=== PATIENT | female | born 1970 | race Caucasian/White ===

== ENCOUNTER 2017-06-27 19:12 | Emergency (ER) | payer BC, OTHER ==
[~2017-06-27] VITALS: Ht 147.3 cm; Wt 86.8 kg
[~2017-06-27 19:12] MED LIST: ANTIVERT 12.512.5 MG PO; FLEXERIL 1010 MG/TAB PO; NORCO 325 MG-51 TAB PO; PRINIVIL20 MG PO; TUSS PO; TYLENOL ARTHRI650 M1; ZITHROMAX Z PA250 MG PO
[2017-06-27 19:13] VITALS: BP 130/82; PULSE 89; TEMP 99
== END 2017-06-27 21:12 | disposition home or self-care (01) ==
LOC: COL.ER 19:12
DX: M76.62 Achilles tendinitis, left leg (principal); G43.909 Migraine, unspecified, not intractable, without status migrainosus

== ENCOUNTER 2018-02-25 10:03 | Emergency (ER) | payer BC, OTHER ==
[~2018-02-25] VITALS: Ht 147.3 cm; Wt 90.5 kg
[2018-02-25 10:12] VITALS: BP 120/90; PULSE 100; TEMP 98.2
[2018-02-25] MEDS ORDERED: ZANAFLEX2 MG PO (11:03)
[2018-02-25] MEDS ORDERED: AMITRIPTYLINE H25 M1 PO (11:03)
[2018-02-25] MEDS ORDERED: ULTRAM 50MG TAB50 MG PO (11:03)
[2018-02-25] MEDS ORDERED: TROKEND100 (11:04)
[2018-02-25] MEDS ORDERED: NEURONTIN300 MG/CAP PO (11:04)
[2018-02-25] MEDS ORDERED: TOPROL XL 25MG25 MG PO (11:04)
== END 2018-02-25 11:23 | disposition home or self-care (01) ==
LOC: COL.ER 10:03
DX: S92.515A Nondisplaced fracture of proximal phalanx of left lesser toe(s), initial encounter for closed fracture (principal); Z98.890 Other specified postprocedural states; Z87.891 Personal history of nicotine dependence; W22.8XXA Striking against or struck by other objects, initial encounter; Y92.009 Unspecified place in unspecified non-institutional (private) residence as the place of occurrence of the external cause

== ENCOUNTER 2018-06-22 12:11 | Emergency (ER) | payer BC, OTHER ==
[~2018-06-22] VITALS: Ht 147.3 cm; Wt 90.5 kg
[~2018-06-22 12:11] MED LIST changes: +AMITRIPTYLINE H25 M1 PO; +NEURONTIN300 MG/CAP PO; +TOPROL XL 25MG25 MG PO; +TROKEND100; +ULTRAM 50MG TAB50 MG PO; +ZANAFLEX2 MG PO
[2018-06-22 12:21] VITALS: BP 128/80; TEMP 98
[2018-06-22] MEDS ORDERED: SAVELLA100 MG PO (13:14)
[2018-06-22] MEDS ORDERED: PHARMASSURE MA500 MG PO (13:14)
[2018-06-22] MEDS ORDERED: VITAMIN D32000 I1 PO (13:15)
[2018-06-22] MEDS ORDERED: CLARITIN 1010 MG/TAB PO (13:15)
[2018-06-22] MEDS ORDERED: ATARAX 25MG25 MG/TAB PO (13:16)
[2018-06-22] MEDS ORDERED: NEURONTIN300 MG/CAP PO (13:17)
[2018-06-22 13:59] VITALS: PULSE 82
== END 2018-06-22 13:59 | disposition home or self-care (01) ==
LOC: COL.ER 12:11
DX: S76.011A Strain of muscle, fascia and tendon of right hip, initial encounter (principal); S80.12XA Contusion of left lower leg, initial encounter; W22.8XXA Striking against or struck by other objects, initial encounter; Y92.89 Other specified places as the place of occurrence of the external cause

== ENCOUNTER 2019-06-27 11:45 | Outpatient (CLI) | payer BC, OTHER ==
[~2019-06-27] VITALS: Ht 147.3 cm; Wt 89.5 kg
[~2019-06-27 11:45] MED LIST changes: +ATARAX 25MG25 MG/TAB PO; +CLARITIN 1010 MG/TAB PO; +PHARMASSURE MA500 MG PO; +SAVELLA100 MG PO; +VITAMIN D32000 I1 PO
[2019-06-27] MEDS ORDERED: ALEVE 220MG220 MG PO (12:41)
[2019-06-27] MEDS ORDERED: TYLENOL 325MG325 MG PO (12:43)
[2019-06-27] MEDS ORDERED: VITAMIN B12 681 TAB PO (12:44)
[2019-06-27] MEDS ORDERED: SKELAXIN 4400 MG/TAB PO (12:45)
[2019-06-27] MEDS ORDERED: LINZESS145CAP PO (12:46)
[2019-06-27] MEDS ORDERED: AIMOVIG AU70 MG/1 ML SQ (12:47)
[2019-06-27] MEDS ORDERED: SAXENDA6 MG/ML SQ (12:48)
[2019-06-27] MEDS ORDERED: ZOFRAN8 MG PO (12:49)
[2019-06-27] MEDS ORDERED: LIDODERM 5% PATC1 EA TP (12:50)
[2019-06-27] MEDS ORDERED: PHENERGAN 25 TA25 MG PO (12:50)
[2019-06-27] MEDS ORDERED: VALIUM 5MG T5 MG/TAB PO (12:51)
[2019-06-27 12:53] VITALS: BP 122/76; PULSE 91; TEMP 98.5
[2019-06-27 14:38] VITALS: BP 105/80; PULSE 109; TEMP 98.5
--- NOTE | 2019-06-27 14:38 | NUR ---
Back from TTT by shandra. VSS. Spouse bedside
[2019-06-27 14:52] VITALS: BP 99/65; PULSE 100; TEMP 98.5
[2019-06-27 15:07] VITALS: BP 91/53; PULSE 116; TEMP 98.5
--- NOTE | 2019-06-27 15:09 | NUR ---
Dr. Ivey in to see pt.
[2019-06-27 15:22] VITALS: BP 111/63; PULSE 94; TEMP 98.5
--- NOTE | 2019-06-27 15:30 | NUR ---
IV discontinued intact. Discharge instructions given. Transferred to private car by shandra
== END 2019-06-27 15:35 | disposition home or self-care (01) ==
LOC: COL.CAR 11:45
DX: R55 Syncope and collapse (principal); I10 Essential (primary) hypertension; M19.90 Unspecified osteoarthritis, unspecified site; G47.00 Insomnia, unspecified; G40.909 Epilepsy, unspecified, not intractable, without status epilepticus; Z91.040 Latex allergy status; Z88.8 Allergy status to other drugs, medicaments and biological substances; Z87.891 Personal history of nicotine dependence; Z80.9 Family history of malignant neoplasm, unspecified; Z83.79 Family history of other diseases of the digestive system; Z91.048 Other nonmedicinal substance allergy status

== ENCOUNTER 2019-08-06 09:49 | Inpatient (IN) | payer BC, OTHER ==
[~2019-08-06] VITALS: Ht 165.1 cm; Wt 90.2 kg
[~2019-08-06 09:49] MED LIST changes: +AIMOVIG AU70 MG/1 ML SQ; +ALEVE 220MG220 MG PO; +LIDODERM 5% PATC1 EA TP; +LINZESS145CAP PO; +PHENERGAN 25 TA25 MG PO; +SAXENDA6 MG/ML SQ; +SKELAXIN 4400 MG/TAB PO; +TYLENOL 325MG325 MG PO; +VALIUM 5MG T5 MG/TAB PO; +VITAMIN B12 681 TAB PO; +ZOFRAN8 MG PO
[2019-08-07 08:51] VITALS: BP 91/71; PULSE 82; TEMP 97.9
[2019-08-07] MEDS ORDERED: VITAMIN B11000 MCG/M IM (09:16)
[2019-08-07 09:36] LABS: BASO % 0.7 % (0.0-2.0); EOS # 0.1 (0.0-0.7); EOS % 1.4 % (0-4.0); GRAN # 2.4 (1.4-6.5); GRAN % 55.5 % (42.2-75.2); LYMPH # 1.4 (1.2-3.4); MEAN CELL VOLUME 89 fl (80.0-100.0); MEAN CORPUSCULAR HEMOGLOBIN 27 pg (27.0-31.0); MEAN CORPUSCULAR HGB CONC 30 g/dl (33.0-37.0); MEAN PLATELET VOLUME 9.4 fl (7.4-10.4); MONO # 0.4 (0.1-0.6); MONO % 9.9 % (1.7-9.3); PLATELET COUNT 367 K/mm3 (130-400); RED BLOOD COUNT 4.07 M/mm3 (4.10-5.30)
[2019-08-07 09:38] LABS: HEMATOCRIT 36.3 % (37.0-47.0)
[2019-08-07 09:39] LABS: PROTHROMBIN TIME 11.8 SECONDS (9.7-12.8)
[2019-08-07 09:46] LABS: ALBUMIN 4.1 gm/dL (3.5-5.0); BILIRUBIN,TOTAL 0.3 mg/dL (0.0-1.0); CALCIUM 9.2 mg/dL (8.4-10.2); CREATININE, serum 1.03 (0.52-1.25); MAGNESIUM 2.2 mg/dL (1.6-2.3); POTASSIUM 3.9 mmol/L (3.4-5.0); TOTAL PROTEIN 7.1 gm/dL (6.4-8.2)
[2019-08-07 11:24] VITALS: BP 95/59; PULSE 73; TEMP 98.3
--- NOTE | 2019-08-07 11:37 | NUR ---
Pt arrives to medical unit rm 316, ambulates into rm with steady gait, A&O x 4. Physical assessment unremarkable. Pt reports pain to back 6 out of 10, states, "that is what it always is." POC reviewed with pt. No further needs reported. Call light in reach.
[2019-08-07 15:30] VITALS: BP 125/78; PULSE 81; TEMP 98.1
[2019-08-07 20:00] VITALS: BP 110/65; PULSE 79; TEMP 98.5
--- NOTE | 2019-08-07 20:30 | NUR ---
Shift assessment complete. Patient in bed, awake. States 3/10 H/A, declines pain medication. VS stable, QTc on last ekg 401. First dose of sotalol given (half dose). Denies further needs at this time. Will continue to monitor.
[2019-08-07 23:51] VITALS: BP 92/52; PULSE 79; TEMP 97.4
[2019-08-08] VITALS (14 sets, daily range): BP systolic 79–126; BP diastolic 33–83; PULSE 76–105; TEMP 97.5–98.5
--- NOTE | 2019-08-08 | NUR ---
Patient in bed, resting. Denies pain. Denies further needs at this time. Will continue to monitor.
--- NOTE | 2019-08-08 04:50 | NUR ---
Patient in bed, awake. BP 99/62, pt asymptomatic. Denies pain. Denies further needs, will continue to monitor.
[2019-08-08 06:46] LABS: BASO % 0.7 % (0.0-2.0); EOS # 0.1 (0.0-0.7); EOS % 1.1 % (0-4.0); GRAN # 2.3 (1.4-6.5); GRAN % 51.1 % (42.2-75.2); HEMOGLOBIN 10.4 g/dl (12.5-16.0); LYMPH # 1.7 (1.2-3.4); LYMPH % 37.7 % (20.0-51.0); MEAN CELL VOLUME 88 fl (80.0-100.0); MEAN CORPUSCULAR HEMOGLOBIN 27 pg (27.0-31.0); MEAN CORPUSCULAR HGB CONC 31 g/dl (33.0-37.0); MEAN PLATELET VOLUME 9.7 fl (7.4-10.4); MONO # 0.4 (0.1-0.6); MONO % 9.2 % (1.7-9.3); PLATELET COUNT 350 K/mm3 (130-400); RED BLOOD COUNT 3.82 M/mm3 (4.10-5.30)
[2019-08-08 06:47] LABS: PROTHROMBIN TIME 11.8 SECONDS (9.7-12.8)
[2019-08-08 06:53] LABS: HEMATOCRIT 33.6 % (37.0-47.0)
[2019-08-08 07:00] LABS: CALCIUM 8.6 mg/dL (8.4-10.2); CREATININE, serum 0.83 (0.52-1.25); POTASSIUM 3.8 mmol/L (3.4-5.0)
--- NOTE | 2019-08-08 08:06 | NUR ---
Pt left for lexiscan at this time.
--- NOTE | 2019-08-08 09:00 | NUR ---
Pt assessment done. Alert and oriented x4. Denies SOB, pain, nausea, dizziness, or any discomfort. INT to LT AC patent, CDI. at bedside. Needs met. Call light within reach.
--- NOTE | 2019-08-08 10:10 | NUR ---
CHUN met with the patient to discuss discharge plan. The patient lives in [place] with her , Hong (ph#[phone]), and son. She reports independence with ADLs and does not have any DME. The patient's PCP is Dr. Jesus Carrasco and she receives her medications at [facility]. She reports no difficulties obtaining her meds. The patient does not have advanced directives completed, but she was interested in obtaining a form for [employer]PO[employer]-[facility]. CHUN provided. The patient plans to return home with her family upon discharge. No additional needs at this time.
--- NOTE | 2019-08-08 19:15 | NUR ---
Pt laying comfortably in bed with at bedside. brought outside food for pt for dinner. Denies pain or dizziness. C/O heachache 02/15. PRN Tylenol 650mg given. Needs met. Pt able to make needs known. Call light withing reach.
--- NOTE | 2019-08-08 22:15 | NUR ---
Resting in bed. Reports 5/10 headache. Provided with PRN tylenol. Assessment completed. Lungs clear. Heart sounds normal but irregular. Pulses strong throughout. No edema noted. Midline chest incision from loop recorder has dried drainage present. Patient reports no change from earlier in day. INT left AC flushed. Denies other needs at this time. Call light in reach.
--- NOTE | 2019-08-08 23:18 | NUR ---
CITY ASSESSOR reports blood pressure low in earlier in shift. Rechecked at this time. 101/64. Will continue to closely monitor.
--- NOTE | 2019-08-09 02:00 | NUR ---
Resting in bed asleep. Call light in reach.
[2019-08-09 04:57] VITALS: BP 95/62; PULSE 79; TEMP 97.5
--- NOTE | 2019-08-09 05:05 | NUR ---
Resting in bed. Denies needs. Call light in reach.
--- NOTE | 2019-08-09 05:58 | NUR ---
Patient required x1 dose of tylenol for a headache earlier in night. Otherwise uneventful. Resting in bed this AM. Call light in reach.
[2019-08-09 06:41] LABS: BASO % 0.7 % (0.0-2.0); EOS # 0.1 (0.0-0.7); EOS % 1.2 % (0-4.0); GRAN % 47.2 % (42.2-75.2); HEMOGLOBIN 10.2 g/dl (12.5-16.0); LYMPH # 1.7 (1.2-3.4); MEAN CELL VOLUME 88 fl (80.0-100.0); MEAN CORPUSCULAR HEMOGLOBIN 27 pg (27.0-31.0); MEAN CORPUSCULAR HGB CONC 31 g/dl (33.0-37.0); MEAN PLATELET VOLUME 9.7 fl (7.4-10.4); MONO # 0.5 (0.1-0.6); MONO % 10.7 % (1.7-9.3); PLATELET COUNT 319 K/mm3 (130-400); RED BLOOD COUNT 3.72 M/mm3 (4.10-5.30); REDCELL DISTRIBUTION WIDTH-CV 15.9 % (11.5-14.5)
--- NOTE | 2019-08-09 06:42 | NUR ---
Report given to RESHMA Jaime
[2019-08-09 06:59] LABS: CALCIUM 8.8 mg/dL (8.4-10.2); CREATININE, serum 0.94 (0.52-1.25); HEMATOCRIT 32.8 % (37.0-47.0); POTASSIUM 3.9 mmol/L (3.4-5.0)
[2019-08-09 07:13] LABS: INR 1.1 (0.8-3.0); PROTHROMBIN TIME 12.4 SECONDS (9.7-12.8)
[2019-08-09 08:14] VITALS: BP 120/73; PULSE 73; TEMP 98.3
[2019-08-09] MEDS ORDERED: CEPHALEXIN500 M1 PO (09:40)
[2019-08-09] MEDS ORDERED: BETAPACE 80MG80 MG PO (10:25)
--- NOTE | 2019-08-09 12:33 | NUR ---
First visit from the chair car attendant. No needs right now.
--- NOTE | 2019-08-09 19:21 | NUR ---
1216: Patient DC to home Via Private Vehicle accompanied by . Requested to ambulate out of hospital. Denies c/o of pain or discomfort at discharge. Printed Discharge Summary reviwed with patient with patient to include medication and f/u appointments. No questions or concerns at the end of review.
== END 2019-08-09 12:16 | disposition home or self-care (01) | DRG 262 ==
LOC: MEDICAL 08-07 08:38
PROVIDERS: ADMIT Internal Medicine Cardiovascular Disease
PROC: 0JH632Z Insertion of Monitoring Device into Chest Subcutaneous Tissue and Fascia, Percutaneous Approach (ICD-10-PCS; principal; 2019-08-07)
DX: I48.91 Unspecified atrial fibrillation (principal); I47.2 Ventricular tachycardia; I10 Essential (primary) hypertension
CPT/HCPCS: A9500; J2785

== ENCOUNTER 2019-08-11 21:40 | Emergency (ER) | payer BC, OTHER ==
[~2019-08-11] VITALS: Ht 147.3 cm; Wt 88.6 kg
[~2019-08-11 21:40] MED LIST changes: +BETAPACE 80MG80 MG PO; +CEPHALEXIN500 M1 PO; +VITAMIN B11000 MCG/M IM
[2019-08-11 21:45] VITALS: BP 154/93; TEMP 98.6
[2019-08-11] MEDS ORDERED: CEPHALEXIN250 M1 PO (22:17)
[2019-08-11] MEDS ORDERED: CRUTCHES MC (23:30)
[2019-08-11] MEDS ORDERED: NORCO 325 MG-51 TAB PO (23:39)
[2019-08-11 23:46] VITALS: PULSE 98
== END 2019-08-11 23:40 | disposition home or self-care (01) ==
LOC: COL.ER 21:40
DX: S83.92XA Sprain of unspecified site of left knee, initial encounter (principal); W19.XXXA Unspecified fall, initial encounter; X50.1XXA Overexertion from prolonged static or awkward postures, initial encounter
CPT/HCPCS: J2270; L1846

== ENCOUNTER → 2021-03-24 | Outpatient (CLI) | payer BC, OTHER ==
[~2021-03-24] MED LIST changes: +CEPHALEXIN250 M1 PO; +CRUTCHES MC
== END ==
LOC: MHCPAIN 08:14
DX: M54.5 Low back pain (principal); M47.817 Spondylosis without myelopathy or radiculopathy, lumbosacral region; M53.3 Sacrococcygeal disorders, not elsewhere classified; M25.552 Pain in left hip
CPT/HCPCS: G0463

== ENCOUNTER → 2021-04-05 | Outpatient (CLI) | payer BC, OTHER | LOC: MHCPAIN 10:24 | DX: M47.817 Spondylosis without myelopathy or radiculopathy, lumbosacral region (principal); M54.5 Low back pain; M53.3 Sacrococcygeal disorders, not elsewhere classified | CPT/HCPCS: J1040; Q9967 ==

== ENCOUNTER 2021-04-18 11:39 | Emergency (ER) | payer BC, OTHER ==
[~2021-04-18] VITALS: Ht 147.3 cm; Wt 85.5 kg
[2021-04-18 11:43] VITALS: BP 134/65; PULSE 81; TEMP 98.4
== END 2021-04-18 14:00 | disposition left against medical advice (07) ==
LOC: COL.ER 11:39
DX: R21 Rash and other nonspecific skin eruption (principal)

== ENCOUNTER → 2021-04-21 | Outpatient (CLI) | payer BC, OTHER | LOC: MHCPAIN 15:13 | DX: M47.817 Spondylosis without myelopathy or radiculopathy, lumbosacral region (principal); M41.86 Other forms of scoliosis, lumbar region; M54.5 Low back pain; M53.3 Sacrococcygeal disorders, not elsewhere classified | CPT/HCPCS: G0463 ==

== ENCOUNTER 2021-07-19 16:00 | Outpatient (RCR) | payer BC, OTHER | END 2021-07-22 14:30 | disposition home or self-care (01) | LOC: PT.GENESIS 16:00 | DX: M79.7 Fibromyalgia (principal); M47.816 Spondylosis without myelopathy or radiculopathy, lumbar region; M47.812 Spondylosis without myelopathy or radiculopathy, cervical region ==

== ENCOUNTER → 2021-11-09 | Outpatient (CLI) | payer BC, OTHER | LOC: COL.RAD 09:11 | DX: D25.9 Leiomyoma of uterus, unspecified (principal); N92.0 Excessive and frequent menstruation with regular cycle ==

== ENCOUNTER → 2022-08-04 | Outpatient (CLI) | payer BC, OTHER ==
[2022-08-04 15:44] LABS: HEMOGLOBIN 11.4 g/dl (12.5-16.0); MEAN CELL VOLUME 90 fl (80.0-100.0); MEAN CORPUSCULAR HEMOGLOBIN 28 pg (27-31); MEAN CORPUSCULAR HGB CONC 31 g/dl (33.0-37.0); MEAN PLATELET VOLUME 9.1 fl (7.4-10.4); PLATELET COUNT 322 K/mm3 (130-400); RED BLOOD COUNT 4.02 M/mm3 (4.10-5.30); REDCELL DISTRIBUTION WIDTH-CV 15.9 % (11.5-14.5)
[2022-08-04 15:47] LABS: HEMATOCRIT 36.3 % (37.0-47.0)
[2022-08-04 16:00] LABS: ALBUMIN 3.6 gm/dL (3.5-5.0); BILIRUBIN,TOTAL 0.4 mg/dL (0.2-1.2); CALCIUM 8.9 mg/dL (8.4-10.2); CREATININE, serum 0.82 mg/dL (0.57-1.11); POTASSIUM 3.5 mmol/L (3.5-4.5); TOTAL PROTEIN 6.4 gm/dL (6.2-8.1)
[2022-08-04 16:20] LABS: EOSINOPHIL 1 % (0-4); LYMPHOCYTE 27 % (20.0-51.0); NEUTROPHILS 65 % (42.0-75.2)
[2022-08-04 16:21] LABS: ANISOCYTOSIS 1+; HYPOCHROMIA 2+; PLATELET ESTIMATE NORMAL (NORMAL)
== END ==
LOC: COL.LAB 14:38
PROVIDERS: Physician Assistant Medical
DX: R10.31 Right lower quadrant pain (principal)
CPT/HCPCS: Q9967

== ENCOUNTER 2023-10-04 10:05 | Emergency (ER) | payer BC, OTHER ==
[~2023-10-04] VITALS: Ht 147.3 cm; Wt 85.9 kg
[~2023-10-04 10:05] MED LIST changes: +BETAPACE 120MG120 MG PO; +DESYREL 50MG50 MG PO; +MEDROL 4MG DOSPA4 MG PO; +MOBIC15 MG PO
[2023-10-04 10:27] VITALS: TEMP 97.9
[2023-10-04 11:26] LABS: BASO # 0.1 K/mm3 (0.0-0.2); BASO % 0.5 % (0.0-2.0); EOS # 0.1 K/mm3 (0.0-0.7); EOS % 1.5 % (0.0-4.0); GRAN # 6.6 K/mm3 (1.4-6.5); GRAN % 71.4 % (42.2-75.2); HEMATOCRIT 49.8 % (37.0-47.0); HEMOGLOBIN 16.8 g/dl (12.5-16.0); LYMPH # 1.4 K/mm3 (1.2-3.4); LYMPH % 15.1 % (20.0-51.0); MEAN CELL VOLUME 94 fl (80.0-100.0); MEAN CORPUSCULAR HEMOGLOBIN 32 pg (27-31); MEAN CORPUSCULAR HGB CONC 34 g/dl (33.0-37.0); MEAN PLATELET VOLUME 9.9 fl (7.4-10.4); MONO % 11.2 % (1.7-9.3); PLATELET COUNT 298 K/mm3 (130-400); RED BLOOD COUNT 5.32 M/mm3 (4.10-5.30); REDCELL DISTRIBUTION WIDTH-CV 12.3 % (11.5-14.5)
[2023-10-04 11:43] LABS: ALBUMIN 3.9 gm/dL (3.5-5.0); BILIRUBIN,TOTAL 0.7 mg/dL (0.2-1.2); CALCIUM 9.9 mg/dL (8.4-10.2); CREATININE, serum 0.94 mg/dL (0.57-1.11); POTASSIUM 3.8 mmol/L (3.5-4.5); TOTAL PROTEIN 6.9 gm/dL (6.2-8.1)
[2023-10-04 12:54] LABS: COLLECTION METHOD CLEAN CATCH
[2023-10-04 13:09] LABS: PH 5.5 (5.0-8.5); URINE APPEARANCE Clear (CLEAR/HAZY); URINE BLOOD Negative (NEGATIVE); URINE COLOR Yellow (YELLOW); URINE GLUCOSE Negative (NEGATIVE); URINE KETONE 4+ (NEGATIVE); URINE NITRATE Negative (NEGATIVE); URINE PROTEIN(semi-quant) Negative (NEGATIVE); URINE UROBILINOGEN 0.2 E.U/dL (0.2-1.0)
[2023-10-04 13:10] LABS: MUCOUS Present (NOT PRESENT); URINE BACTERIA Moderate /hpf (NONE SEEN); URINE RBC 0-2 /hpf (0-2)
[2023-10-04 14:40] LABS: CLOSTRIDIUM DIFF A/B POS
[2023-10-04 14:45] VITALS: BP 133/100; PULSE 98
[2023-10-04] MEDS ORDERED: VANCOCIN H125 MG/CAP PO (14:53)
[2023-10-04] MEDS ORDERED: ZOFRAN ODT4 MG PO (14:54)
[2023-10-04] MEDS ORDERED: CYMBALTA 30MG30 MG PO (15:19)
== END 2023-10-04 15:07 | disposition home or self-care (01) ==
LOC: COL.ER 10:05
PROVIDERS: Physician Assistant
DX: A04.72 Enterocolitis due to Clostridium difficile, not specified as recurrent (principal); Z91.040 Latex allergy status
CPT/HCPCS: J2765; J7030; Q9967

== ENCOUNTER → 2024-03-28 | Outpatient (CLI) | payer BC, OTHER ==
[~2024-03-28] MED LIST changes: +CYMBALTA 30MG30 MG PO; +PEPCID 20MG TAB20 MG PO; +VANCOCIN H125 MG/CAP PO; +ZOFRAN ODT4 MG PO
== END ==
LOC: MHCPAIN 07:40
DX: M47.817 Spondylosis without myelopathy or radiculopathy, lumbosacral region (principal); M54.50 Low back pain, unspecified

== ENCOUNTER → 2024-04-01 | Outpatient (CLI) | payer BC, OTHER | LOC: MHCPAIN 09:07 | DX: M47.817 Spondylosis without myelopathy or radiculopathy, lumbosacral region (principal); M51.26 Other intervertebral disc displacement, lumbar region; M41.86 Other forms of scoliosis, lumbar region | CPT/HCPCS: G0463 ==

== ENCOUNTER → 2024-05-30 | Outpatient (CLI) | payer BC, OTHER ==
[~2024-05-30] MED LIST changes: +Lidocaine PF 2% (20 MG/ML) 5 ML VIAL ONE; +Midazolam 2 MG/2 ML VIAL ONE; +Ondansetron 4 MG/2 ML VIAL ONE; +fentaNYL 50 MCG/ML 2 ML VIAL ONE
== END ==
LOC: MHCPAIN 09:40
DX: M47.817 Spondylosis without myelopathy or radiculopathy, lumbosacral region (principal); M54.50 Low back pain, unspecified
CPT/HCPCS: J0665; J2250; J2405; J3010

== ENCOUNTER → 2024-07-31 | Outpatient (CLI) | payer BC, OTHER ==
[~2024-07-31] MED LIST changes: -Lidocaine PF 2% (20 MG/ML) 5 ML VIAL ONE; -Midazolam 2 MG/2 ML VIAL ONE; -Ondansetron 4 MG/2 ML VIAL ONE; -fentaNYL 50 MCG/ML 2 ML VIAL ONE
== END ==
LOC: MHCPAIN 14:46
DX: M48.02 Spinal stenosis, cervical region (principal); M43.12 Spondylolisthesis, cervical region; M43.16 Spondylolisthesis, lumbar region; M48.061 Spinal stenosis, lumbar region without neurogenic claudication; M41.86 Other forms of scoliosis, lumbar region; M47.817 Spondylosis without myelopathy or radiculopathy, lumbosacral region
CPT/HCPCS: G0463